=== PATIENT | female | born 1940 | race Caucasian/White ===

== ENCOUNTER 2024-06-10 20:03 | Emergency (ER) | payer MEDICARE ==
[2024-06-10] MEDS ORDERED: Ondansetron PF 4 MG/2 ML Vial ONE (20:41)
[2024-06-10 21:04] LABS: Hematocrit 41.8 % (34.9-44.5); Hemoglobin 13.5 g/dL (12.0-15.5); Mean Corpuscular HGB CONC 32.3 g/dL (32.0-36.0); Mean Corpuscular Hemoglobin 26.5 pg (27.0-33.0); Mean Corpuscular Volume 82.1 fL (81.6-98.3); Mean Platelet Volume 11.6 fL (7.4-10.4); Platelet Count 126 10x3/uL (150-450); RBC Distribution Width 15.6 % (11.5-14.5); Red Blood Cell (RBC) Count 5.09 10x6/uL (3.90-5.03); White Blood Cell (WBC) Count 16.8 10x3/uL (3.5-10.5)
[2024-06-10 21:10] LABS: ALT (SGPT) 30 U/L (8-55); AST (SGOT) 41 U/L (5-34); Albumin 3.5 g/dL (3.4-4.8); Alkaline Phosphatase 63 U/L (40-110); Anion Gap 16 mmol/L (10-20); BUN (Urea Nitrogen) 42 mg/dL (9.8-20.1); Bilirubin, Total 1.6 mg/dL (0.2-1.2); Calc. Creatinine Clearance 0 mL/min (70-130); Calcium 8.4 mg/dL (7.8-10.44); Carbon Dioxide 22 mmol/L (23-31); Chloride 100 mmol/L (98-107); Estimated GFR 31; Glucose 116 mg/dL (83-110); Magnesium 2.1 mg/dL (1.6-2.6); Protein, Total 5.5 g/dL (5.8-8.1); Sodium 134 mmol/L (136-145)
[2024-06-10 21:16] LABS: Troponin I 0.034 ng/mL (< 0.028)
[2024-06-10 21:36] LABS: Lipase Less than 4 U/L (8-78)
[2024-06-10 21:39] LABS: Band 16 % (5-11); Lymphocytes 14 % (21-51); Monocytes 4 % (0-10); Reactive Lymphocytes 4 % (0-10)
[2024-06-10 21:45] LABS: Anisocytosis SLIGHT = 6-15 cells (100X) (0-5/hpf); Large Platelets SLIGHT (None Seen); Microcytosis SLIGHT = 6-15 cells (100X) (0-5/hpf); Platelet Adequacy Comment Appears Decreased; Vacuoles SLIGHT
[2024-06-10] MEDS ORDERED: LevoFLOXacin 750 mg/D5W 150 ml Premix Bag ONE (21:58)
[2024-06-10 22:42] LABS: MDiff Complete? YES
[2024-06-10 22:50] LABS: Bilirubin Neg (Negative); Blood, Urine Negative (Negative); Clarity Clear (Clear); Glucose, Urine (Dipstick) 50 mg/dL (Negative); Ketone, Urine Negative (Negative); Leukocyte 100 (Negative); Nitrite Negative (Negative); Protein, Urine (Dipstick) 15 mg/dl (Neg-Trace); Urobilinogen Normal mg/dL (Less than 2)
[2024-06-10 22:59] LABS: Bacteria/HPF 4+ HPF (None Seen); CAUTI Indications for Culture Dysuria,urgency,freq; RBC/HPF 0-3 HPF (0-3)
[2024-06-10 23:00] LABS: Urine Culture Reflex No No
== END 2024-06-11 00:07 | disposition short-term general hospital (02) ==
LOC: CSHERS 20:03
DX: A41.9 Sepsis, unspecified organism (principal); J18.9 Pneumonia, unspecified organism; N17.9 Acute kidney failure, unspecified; R79.89 Other specified abnormal findings of blood chemistry; I10 Essential (primary) hypertension; R19.7 Diarrhea, unspecified
CPT/HCPCS: 71045; 74176; 80053; 81001; 83605; 83690; 83735; 83880; 84484; 85025; 87040; 93005; J1956; J2405; 36415; 96361; 96365; 96375

== ENCOUNTER 2024-09-03 12:04 | Emergency (ER) | payer MEDICARE, OTHER ==
[2024-09-03] MEDS ORDERED: HYDROcodone/Acetaminophen 5/325 mg Tablet ONE (12:52)
== END 2024-09-03 14:54 | disposition home or self-care (01) ==
LOC: CSHERS 12:04
DX: M25.551 Pain in right hip (principal); I10 Essential (primary) hypertension
CPT/HCPCS: 70450